=== PATIENT | male | born 1990 | race Two or more races ===

== ENCOUNTER 2024-08-20 22:22 | Emergency (ER) | payer SELFPAY ==
[2024-08-20 22:37] VITALS: BP 114/62; PULSE 118; RESP 16; TEMP 37.8; O2SAT 96; BMI 28.1
--- NOTE | 2024-08-20 22:41 | ED.GENADULT ---
HPI - General Adult General Chief complaint: Dental/Oral Stated complaint: Throat pain Time Seen by Provider: 08/20/24 22:46 Source: patient and RN notes reviewed Mode of arrival: ambulatory Limitations: language barrier (video) History of Present Illness HPI narrative: 33-year-old male presents for evaluation of sore throat that began today. Progressively worsened throughout the day. Patient reports subjective fever. Took Advil at 3:00 p.m.. Because of continued symptoms he presents to the emergency department. Denies any nausea or vomiting. No sick contacts. He is otherwise feeling well. Related Data Previous Rx's ?Medication ?Instructions ?Recorded amoxicillin 500 mg tablet 500 mg PO BID 10 days #20 tabs 08/20/24 Allergies Allergy/AdvReac Type Severity Reaction Status Date / Time No Known Allergies Allergy Verified 08/20/24 22:42 Review of Systems Review of Systems: Yes all other systems are reviewed and are negative Constitutional: Constitutional: Denies headache(s) ENT: Denies headache(s), Denies lip swelling, Denies mouth pain, Reports sore throat and Denies tongue swelling Neurologic: Denies headache(s) Allergic/Immunologic: Allergic/Immunologic: Denies lip swelling and Denies tongue swelling PMFSH Social History Social History Advance Directives: No Advance Directives Information Provided: No Do you have a plan to hurt others: No Plan Physical Exam ED Vital Signs: Vital Signs - 24 hr 08/20/24 22:37 Temperature 100.1 F Pulse Rate 118 H Respiratory Rate 16 Blood Pressure 114/62 Pulse Oximetry 96 Oxygen Delivery Method Room Air BMI result Body Mass Index 28.1 Const General: cooperative, alert and awake HENMT Other: Auditory canals are patent. TMs are pearly white bilaterally. Nares are patent without any nasal discharge Oropharynx is moist. There is no drooling. No muffled voice. Tonsils are +2 and erythematous with exudate bilaterally. There was no evidence of D[employer]. No stridor. Neck Other: Anterior cervical lymphadenopathy noted Resp Other: Lung sounds clear throughout Cardio Rate: regular rate Rhythm: regular rhythm Course Course Course Narrative: Medical screening exam performed. Please refer to detailed history, exam, evaluation, and management by primary provider. 33-year-old male with a sore throat, fever. Limited evaluation at triage erythematous posterior pharynx. Medications Administered Discontinued Medications Generic Name Dose Route Start Last Admin Trade Name Freq PRN Reason Stop Dose Admin Amoxicillin 500 mg 08/20/24 22:46 08/20/24 22:54 Amoxicillin 500 Mg Capsule PO 08/20/24 22:47 500 mg ONCE ONE Administration Medical Decision Making Medical Decision Making [facility] Narrative: 33-year-old male with sore throat, erythematous tonsils with exudate. No evidence of D[employer]. First dose of amoxicillin given now. Reviewed all discharge instructions. Patient expresses understanding and has no further questions at this time. All assessment and instructions provided with video director of business continuity. Differential Diagnosis Differential Diagnoses: The differential diagnosis associated with the presentation includes D[employer]ER, no evidence of Tonsillitis Viral syndrome Prescription Management I considered prescription management with: Pain Medication and Antibiotic Discharge Plan Discharge Clinical Impression: Acute tonsillitis Patient Disposition: Home, Self-Care Instructions: Tonsillitis (ED) Additional Instructions: Warm water and salt gargles. Amoxicillin as directed. Finish all antibiotics. Tylenol or ibuprofen for pain. Follow-up with your primary care provider. Call this week to schedule a follow-up appointment. Return to the emergency department if you have any worsening of symptoms, or any concerns. Get well soon! Prescriptions: New amoxicillin 500 mg tablet 500 mg PO BID 10 Days Qty: 20 0RF Print Language: Japanese
[2024-08-20 23:20] VITALS: BP 114/62; PULSE 118; RESP 16; TEMP 37.8; O2SAT 96
== END 2024-08-20 23:20 | disposition home or self-care (01) ==
PROVIDERS: Emergency Provider Emergency Medicine
DX: J03.90 Acute tonsillitis, unspecified (principal)
CPT/HCPCS: 99282; 99283